=== PATIENT | female | born 1945 | race Caucasian/White ===

== ENCOUNTER → 2017-04-30 | Outpatient (CLI) | payer MEDICARE ==
[~2017-04-30] MED LIST: ASPI-515 PO; HYDR25TA6 PO; LEVO25TA4 PO; LISI5TAB7 PO; MELO15TA24 PO; TRAM50TA2 PO; TRAZ50TA18 PO
== END | disposition home or self-care (01) ==
LOC: CFH 11:47
PROVIDERS: ATTEND Family Medicine
DX: Z12.31 Encounter for screening mammogram for malignant neoplasm of breast (principal)
CPT/HCPCS: G0202

== ENCOUNTER 2017-11-07 11:13 | Emergency (ER) | payer MEDICARE ==
[~2017-11-07] VITALS: Ht 170.2 cm; Wt 103.1 kg
[2017-11-07] MEDS ORDERED: CYCLOBENZAPRINE 10 MG TABLET ONE (11:46)
[2017-11-07] MEDS ORDERED: HYDROcodone/APAP 5/325 TABLET ONE (11:46)
[2017-11-07] MEDS ORDERED: HYDROcodone/APAP 5/325 TABLET PO ONE (12:00)
[2017-11-07] MEDS ORDERED: CYCLOBENZAPRINE 10 MG TABLET PO ONE (12:00)
[2017-11-07 12:38] LABS: MICROSCOPIC NOT IND
[2017-11-07 12:41] LABS: CULTURE INDICATED? NO
[2017-11-07 13:08] VITALS: BP 127/74
== END 2017-11-07 14:20 | disposition home or self-care (01) ==
LOC: ED 14:04
DX: M51.16 Intervertebral disc disorders with radiculopathy, lumbar region (principal); I10 Essential (primary) hypertension; E03.9 Hypothyroidism, unspecified; Z90.710 Acquired absence of both cervix and uterus; Z86.73 Personal history of transient ischemic attack (TIA), and cerebral infarction without residual deficits
CPT/HCPCS: 72110; 81003; 99285

== ENCOUNTER 2019-12-09 14:18 | Outpatient (CLI) | payer MEDICARE ==
[~2019-12-09 14:18] MED LIST changes: -TRAZ50TA18 PO; +TRAZ50TA66 PO
== END 2019-12-09 23:59 | disposition home or self-care (01) ==
LOC: CVU 14:18
PROVIDERS: ATTEND Internal Medicine Cardiovascular Disease
DX: I35.8 Other nonrheumatic aortic valve disorders (principal); I65.23 Occlusion and stenosis of bilateral carotid arteries; R07.89 Other chest pain
CPT/HCPCS: 93306; 93880

== ENCOUNTER 2020-01-10 09:02 | Emergency (ER) | payer MEDICARE ==
[~2020-01-10] VITALS: Ht 167.6 cm; Wt 99.0 kg
[2020-01-10] MEDS ORDERED: ASPIRIN 81 MG TABLET CHEW PO ONE (09:30)
[2020-01-10] MEDS ORDERED: ASPIRIN 81 MG TABLET CHEW ONE (09:46)
[2020-01-10 09:59] LABS: ALANINE AMINOTRANSFERASE 33 U/L (12-78); ALBUMIN 3.6 g/dL (3.4-5.0); ANION GAP 7 mmol/L (5-15); CALCIUM 9.5 mg/dL (8.5-10.1); CHLORIDE 106 mmol/L (98-107); CREATININE 1.07 mg/dL (0.55-1.02)
[2020-01-10 10:01] LABS: BASOPHILS # (AUTO) 0.04 x10^3/uL (0-0.1); BASOPHILS % (AUTO) 1 % (0-1); EOSINOPHILS % (AUTO) 3 % (1-7); LYMPHOCYTES # (AUTO) 1.61 x10^3/uL (1-3.4); LYMPHOCYTES % (AUTO) 24 % (22-44); MD NO; MEAN CORPUSCULAR HEMOGLOBIN 31.8 pg (27.0-34.8); MEAN CORPUSCULAR HGB CONC 33.4 g/dL (32.4-35.8); MEAN PLATELET VOLUME 9.2 fL (7.4-10.4); MONOCYTES # (AUTO) 0.57 x10^3/uL (0.2-0.8); MONOCYTES % (AUTO) 9 % (2-9); NEUTROPHILS # (AUTO) 4.27 x10^3/uL (1.8-6.8); NEUTROPHILS % (AUTO) 64 % (42-75); PLATELET COUNT 251 x10^3/uL (130-400); RED BLOOD COUNT 4.51 x10^6/uL (3.82-5.3); RED CELL DISTRIBUTION WIDTH 13.1 % (9.6-15.2)
[2020-01-10 10:04] LABS: ALKALINE PHOSPHATASE 51 U/L (45-117); BILIRUBIN,TOTAL 0.3 mg/dL (0.2-1.0); TOTAL PROTEIN 7.3 g/dL (6.4-8.2); TROPONIN I < 0.015 ng/mL (0.000-0.045)
[2020-01-10] MEDS ORDERED: OMNIPAQUE 350 MG/ML, 75ML BOTTLE ONE (11:14)
[2020-01-10 12:21] VITALS: BP 131/82
== END 2020-01-10 13:00 | disposition home or self-care (01) ==
LOC: ED 09:57
DX: R06.00 Dyspnea, unspecified (principal); R07.9 Chest pain, unspecified; R91.8 Other nonspecific abnormal finding of lung field; I49.3 Ventricular premature depolarization
CPT/HCPCS: 36415; 71045; 71275; 80053; 83880; 84484; 85025; 85379; 93005; 99285; Q9967

== ENCOUNTER 2020-08-16 09:41 | Outpatient (CLI) | payer MEDICARE ==
[~2020-08-16 09:41] MED LIST changes: -ASPI-515 PO; +ASPI-963 PO
== END 2020-08-16 23:59 | disposition home or self-care (01) ==
LOC: RAD 09:41
PROVIDERS: ATTEND Family Medicine
DX: M25.50 Pain in unspecified joint (principal)
CPT/HCPCS: 93970